=== PATIENT | female | born 1995 ===

== ENCOUNTER 2017-11-01 17:14 | Emergency (ER) | payer SELFPAY ==
[2017-11-01 18:24] LABS: URINE HCG POC HCG NEGATIVE (Negative)
[2017-11-01 19:19] LABS: BILIRUBIN,URINE SMALL (NEG); CLARITY,URINE CLEAR; GLUCOSE,URINE NEGATIVE (NEG); NITRITE,URINE POSITIVE (NEG); PROTEIN,URINE 30 mg/dL (NEG-TRACE)
[2017-11-01 19:26] LABS: COLOR,URINE AMBER; RBC,URINE 0 /HPF (0-2)
[2017-11-01 19:27] LABS: BACTERIA,URINE 0 /HPF (0-FEW); SQUAMOUS EPITHELIAL CELL,UR MOD /LPF
== END 2017-11-01 19:45 | disposition home or self-care (01) ==
LOC: ER 17:14
DX: S00.83XA Contusion of other part of head, initial encounter (principal); F12.10 Cannabis abuse, uncomplicated; Y08.89XA Assault by other specified means, initial encounter; Y93.89 Activity, other specified; Y92.89 Other specified places as the place of occurrence of the external cause; Y99.8 Other external cause status; N39.0 Urinary tract infection, site not specified
CPT/HCPCS: 70450; 70486; 74176; 81001; 81025; 99285-25